=== PATIENT | male | born 2000 | race African-American/Black ===

== ENCOUNTER 2020-02-29 17:34 | Emergency (ER) | payer SELFPAY ==
[~2020-02-29] VITALS: Ht 177.8 cm; Wt 75.0 kg
[2020-02-29 17:39] VITALS: BP 136/88
== END 2020-02-29 19:53 | disposition left against medical advice (07) ==
LOC: ER 17:34
DX: Z48.01 Encounter for change or removal of surgical wound dressing (principal)
CPT/HCPCS: 99281